=== PATIENT | female | born 1970 | race Caucasian/White ===

== ENCOUNTER → 2024-09-21 | Outpatient (CLI) | payer BC ==
--- NOTE | 2024-09-21 10:19 | MR ---
EXAMINATION TYPE: MR liver wo/w con and mrcp DATE OF EXAM: 09/21/2024 7:42 AM COMPARISON: None. CLINICAL INDICATION: Female, 53 years old with history of R79.89 ABNORMAL FINDINGS OF BLOOD CHEMISTRY ; PHH, Nausea, vomiting, abnormal US and labs TECHNIQUE MRI ABDOMEN WITH CONTRAST: Multiplanar multi-sequence imaging was performed without and wit h IV contrast/gadolinium. The patient was given 7 cc Gadobutrol gadolinium intravenously and dynamic post-VIBE (volumetric interpolated breath-hold gradient recall echo) imaging was performed. IV Contrast: 7 mL Gadobutrol (None, if empty) TECHNIQUE MRCP ABDOMEN WITHOUT CONTRAST: Multi planar, T2-weighted imaging with and without fat satur ation and chemical shift imaging was performed of the abdomen. Then, heavily T2 weighted imaging (domingo f-Fourier acquisition single-shot turbo spin-echo) was utilized in order to study the biliary system. Maximum intensity projection images were reconstructed from the original data of the biliary tree. 3D reconstructions and MIP imaging performed on a separate workstation. FINDINGS: MRCP: * The intrahepatic ducts are dilated slightly centrally. * The extrahepatic ducts are mildly dilated * The common hepatic duct measures 13 mm in size. * The common bile duct at the level of the pancreatic head measures 10 mm in size. * The pancreatic duct is normal. * The gallbladder is surgically absent with cystic duct remnant. Abdomen: Liver: No evidence for cirrhosis. Signal dropout on chemical shift out of phase imaging. Pancreas: No ductal dilation. No evidence for solid mass. Spleen: Normal for size. Adrenal glands: Unremarkable. Kidneys: No evidence for obstructive uropathy. No suspicious renal masses. Simple appearing high T2 l ow T1 signal renal cyst on the right measuring 7 mm. No enhancement. No follow-up recommended versus lesion. Simple appearing subcentimeter left renal cyst also does not require follow-up. Stomach and Bowel: No evidence for bowel wall thickening or evidence for obstruction. The appendix is normal. Retroperitoneum/Peritoneum: No evidence of pneumoperitoneum or free fluid. Vasculature: No aortic aneurysm. Musculoskeletal: The osseous structures appear intact. Lymph Nodes: No gross evidence for lymphadenopathy. Abdominal wall: Unremarkable. IMPRESSION: 1. Surgically absent gallbladder with dilation extra hepatic and central intrahepatic biliary ducts which can be seen in normal post cholecystectomy physiology. No evidence to suggest ductal stricture or choledocholithiasis. 2. Hepatic steatosis. [facility], , 09/21/2024 10:16 AM
== END | disposition home or self-care (01) ==
LOC: RADMRIMAIN 06:41
PROVIDERS: ATTEND Internal Medicine Gastroenterology
DX: K76.0 Fatty (change of) liver, not elsewhere classified (principal); K83.8 Other specified diseases of biliary tract; R79.89 Other specified abnormal findings of blood chemistry; Z90.49 Acquired absence of other specified parts of digestive tract
CPT/HCPCS: 74183; A9585